=== PATIENT | male | born 1950 | race Hispanic/Latino ===

== ENCOUNTER → 2025-01-17 | Outpatient (CLI) | payer OTHER ==
[~2025-01-17] MED LIST: IOHEXOL 350 MG/ML 100ML INFUS..BTL IV ONE
--- NOTE | 2025-01-18 08:48 | HMCIMG ---
EXAM: CT Cardiac Angiogram. CLINICAL HISTORY: Atherosclerotic heart disease. TECHNIQUE: Thin collimated axial CT cardiac angiogram images were obtained. A CT scan is done according to ALARA (As Low As Reasonably Achievable). CONTRAST: 100 cc Omnipaque 350. COMPARISON: None provided. FINDINGS: Coronary CT Angiography: Dominance of the coronary artery system: Right Left Main: The left main is a normal caliber vessel that gives rise to the LAD and circumflex arteries. There is peripheral atherosclerotic plaque in the left main causing mild narrowing of up to 20%. There is also a thin ramus intermedius arising from the left main artery. Left Anterior Descending Artery /T/ Diagonals: There is a long segment of patchy peripheral atherosclerotic calcification of the proximal left anterior descending artery, causing varying degrees of narrowing, with a maximum of up to 70%. The first diagonal branch shows patchy atherosclerotic calcified plaques proximally, causing moderate narrowing of up to 50%. The mid and distal LAD appear normal. LAD is a type II vessel. Left Circumflex Artery /T/ Obtuse Marginals: There is a long segment of patchy peripheral atherosclerotic calcification of the proximal left circumflex artery, causing varying degrees of narrowing of maximum up to 20%. The obtuse marginal branch (OM1) has no stenosis or plaques. Right Coronary Artery: There is a long segment of patchy peripheral atherosclerotic calcification of the right coronary artery in its entire extent, causing varying degrees of narrowing, with a maximum of up to 50%. The acute marginal is normal in course and shows no plaques or stenosis. RCA is a dominant artery. The right posterior descending artery and right posterolateral branches have no stenosis or plaques. Cardiac Morphology:Both atria and ventricles are normal. The mitral valve leaflets are normal. The pericardium is normal, and there is no pericardial effusion. The aortic valve is tricuspid. The visualized thoracic aorta is normal in course and caliber. Extracardiac findings:The visualised pulmonary arteries appear normal in caliber. The visualised lung parenchyma is unremarkable. The included portion of the upper abdomen appears normal. IMPRESSION: 1. Triple-vessel coronary artery disease as described. CADRADS 4A. 2. Right Dominant Circulation. /[place]
== END | disposition home or self-care (01) ==
LOC: RAH 08:26
PROVIDERS: ATTEND Internal Medicine Cardiovascular Disease
DX: I25.10 Atherosclerotic heart disease of native coronary artery without angina pectoris (principal)
CPT/HCPCS: 75574; Q9967